=== PATIENT | female | born 1990 | race Two or more races ===

== ENCOUNTER 2023-08-01 22:50 | Emergency (ER) | payer OTHER ==
--- NOTE | 2023-08-01 23:34 | ED Physician Documentation ---
History of Present Illness - Stated complaint Stated Complaint: DIZZY/NAUSEA - Chief complaint Chief Complaint: General - History obtained from History obtained from: Patient - Additonal information Additional information: 32yF at 9wga p/w nausea, intermittent positional lightheadedness, and constant fatigue/weakness X 1 week. patient also describes mood as "zombie like" and depressed. denies si/hi/avh. denies urinary sx, fever, abdominal pain. PD PAST MEDICAL HISTORY - Past Medical History Past Medical History: No - Past Surgical History Past Surgical History: No - Present Medications Home Medications: Ambulatory Orders Medication Instructions Recorded Confirmed Ondansetron Odt [Zofran Odt] 4 mg TL Q6H PRN #10 tablet 08/02/23 - Allergies Allergies/Adverse Reactions: Allergies Allergy/AdvReac Type Severity Reaction Status Date / Time No Known Drug Allergies Allergy Verified 08/01/23 23:06 - Social History Does the pt smoke?: No Smoking Status: Never smoker Does the pt drink ETOH?: No Does the pt have substance abuse?: No - Immunizations Immunizations are current?: Yes PD ED PE NORMAL - Vitals Vital signs reviewed: Yes - General General: Alert and oriented X 3, No acute distress, Well developed/nourished - HEENT HEENT: Atraumatic, PERRL, EOMI - Neck Neck: Supple, no meningeal sign - Cardiac Cardiac: RRR - Respiratory Respiratory: No respiratory distress, Clear bilaterally - Abdomen Abdomen: Non tender, Non distended - Derm Derm: Normal color, Warm and dry - Extremities Extremities: No deformity - Neuro Neuro: No motor deficit, No sensory deficit Results - Vitals Vitals: Vital Signs - 24 hr 08/01/23 23:06 Temperature 37.4 C Heart Rate 76 Respiratory 15 Rate Blood Pressure 116/63 O2 Saturation 100 Oxygen O2 Source Room air - Labs Labs: Laboratory Tests 08/02/23 08/02/23 00:40 00:56 POC Whole Bld Glucose 101 H Urine Color YELLOW Urine Clarity CLOUDY Urine pH 7.5 Ur Specific [place] 1.015 Urine Protein NEGATIVE Urine Glucose (UA) NEGATIVE Urine Ketones NEGATIVE Urine Occult Blood NEGATIVE Urine Nitrite NEGATIVE Urine Bilirubin NEGATIVE Urine Urobilinogen 0.2 (NORMAL) Ur Leukocyte Esterase TRACE H Urine RBC None Seen Urine WBC 4-5 Ur Squamous Epith Cells RARE Squamous Amorphous Sediment Marked Urine Bacteria None Seen Urine Culture Comments INDICATED PD Medical Decision Making - ED course ED course: 32yF at 9wga p/w fatigue, nausea, lightheadedness, and depressed mood X 1 week. Patient is well appearing with benign vital signs and exam. fingerstick normal. u/a shows trace leuk esterase but also some epithelial cells and wbc so likely contaminant. she is not having urinary sx. zofran provided with improvement in nausea. symptomatic care discussed. 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 Return precautions given. Departure - Departure Disposition: 01 Home, Self Care Clinical Impression: Dizziness, Depressed mood, Feeling tired, Early stage of , Nausea Condition: Stable Instructions: Ondansetron oral dissolving tablet Prescriptions: Ondansetron Odt [Zofran Odt] 4 mg TL Q6H PRN #10 tablet PRN Reason: Nausea / Vomiting Comments: You were seen in the emergency department for medical evaluation. Zofran sent to the [facility] electronically. Please follow-up with your primary care provider and return to the emergency department if you have any new or worsening symptoms or other concerns. Forms: PCP List
--- NOTE | 2023-08-02 00:29 | Ultrasound Report ---
PROCEDURE: OB 1st Trimester INDICATIONS: nausea, fatigue, dizzy X 1 wk OUTSIDE/PRIOR DATING DATA: Last menstrual period (LMP): 06/04/2023. LMP-based estimated date of delivery (HERIBERTO): 03/10/2024. First dating scan (date and location): 08/01/2023. Estimated date of delivery (HERIBERTO) from first dating scan: 03/09/2024. TECHNIQUE: Real-time scanning was performed of the fetus and maternal pelvic organs, with image documentation. COMPARISON: None. FINDINGS: Intrauterine gestational sac present. Embryo: Present, measuring 1.88 cm, 8 weeks 3 days. Heart rate: 176 bpm. Other: Small subchorionic hemorrhage measuring 1.6 x 1.9 x 0.8 cm. Normal cul-de-sac. Measurement variability in dating: +/- 4 weeks by LMP, +/- 7 days by mean sac diameter (use before 6 weeks gestation if crown-rump length not able to be measured), +/- 5 days by crown-rump length (6-12 weeks gestation). Maternal organs: Ovaries demonstrate a right-sided corpus luteum. IMPRESSION: Single living intrauterine at 8 weeks 3 days, HERIBERTO of 03/09/2024. Small subchorionic hemorrhage present. Reviewed by: Dino Billy MD on 08/02/2023 12:27 AM PDT Approved by: Dino Billy MD on 08/02/2023 12:27 AM PDT Station ID: [id number]
[2023-08-02 00:48] LABS: BILIRUBIN,URINE NEGATIVE (NEGATIVE); GLUCOSE, URINE (UA) NEGATIVE (NEGATIVE); KETONES,URINE (UA) NEGATIVE (NEGATIVE); LEUKOCYTE ESTERASE, URINE TRACE (NEGATIVE); NITRITE,URINE NEGATIVE (NEGATIVE); OCCULT BLOOD,URINE NEGATIVE (NEGATIVE); PH,URINE 7.5 PH (5.0-7.5); PROTEIN,URINE NEGATIVE (NEGATIVE); UROBILINOGEN,URINE 0.2 (NORMAL) E.U./dL (NORMAL)
[2023-08-02] MEDS: ONDANSETRON ODT 4 MG TABLET TL STA (00:48)
[2023-08-02 00:56] LABS: CLARITY,URINE CLOUDY (CLEAR)
[2023-08-02 00:57] LABS: AMORPHOUS SEDIMENT,UR Marked /LPF; BACTERIA,URINE None Seen /HPF (None Seen); RBC,URINE None Seen /HPF (0-5); SQUAMOUS EPITHELIAL CELL,UR RARE Squamous (<= Few)
[2023-08-02 01:31] VITALS: BP 104/71; O2SAT 99
== END 2023-08-02 01:23 | disposition home or self-care (01) ==
LOC: ED 22:50
DX: O99.891 Other specified diseases and conditions complicating pregnancy (principal); R11.0 Nausea; R42 Dizziness and giddiness; R53.83 Other fatigue; O99.341 Other mental disorders complicating pregnancy, first trimester; F32.A Depression, unspecified; Z3A.09 9 weeks gestation of pregnancy
CPT/HCPCS: 76801; 81001; 87086; 99283; 99284; Q0162

== ENCOUNTER 2023-09-21 22:06 | Emergency (ER) | payer OTHER ==
[2023-09-21 22:36] LABS: BASOPHILS % (AUTO) 0.3 %; EOSINOPHILS # (AUTO) 0.2 10^3/uL (0.0-0.7); EOSINOPHILS % (AUTO) 1.7 %; HCT - HEMATOCRIT 35.3 % (37.0-47.0); HGB - HEMOGLOBIN 11.6 g/dL (12.0-16.0); LYMPHOCYTES % (AUTO) 19.6 %; MEAN CORPUSCULAR HEMOGLOBIN 29.7 pg (27.0-31.0); MEAN CORPUSCULAR HGB CONC 32.9 g/dL (32.0-36.0); MEAN CORPUSCULAR VOLUME 90.5 fL (81.0-99.0); MEAN PLATELET VOLUME 9.6 fL (7.9-10.8); MONOCYTES # (AUTO) 0.6 10^3/uL (0.0-1.0); MONOCYTES % (AUTO) 6.2 %; NEUTROPHILS # (AUTO) 7.3 10^3/uL (1.5-6.6); NEUTROPHILS % (AUTO) 71.8 %; PLT - PLATELET COUNT 217 10^3/uL (130-450); RED CELL DISTRIBUTION WIDTH 12.4 % (12.0-15.0); WHITE BLOOD COUNT 10.2 x10^3/uL (4.8-10.8)
[2023-09-21 22:52] LABS: ALBUMIN 3.7 g/dL (3.2-5.5); ALBUMIN/GLOBULIN RATIO 1.2 (1.0-2.2); BILIRUBIN,TOTAL 0.2 mg/dL (0.2-1.0); CALCIUM 9.7 mg/dL (8.5-10.3); CREATININE 0.5 mg/dL (0.6-1.3); POTASSIUM 3.5 mmol/L (3.5-4.5); TOTAL PROTEIN 6.9 g/dL (6.4-8.9)
[2023-09-21 22:53] LABS: BILIRUBIN,URINE NEGATIVE (NEGATIVE); GLUCOSE, URINE (UA) NEGATIVE (NEGATIVE); KETONES,URINE (UA) NEGATIVE (NEGATIVE); LEUKOCYTE ESTERASE, URINE TRACE (NEGATIVE); NITRITE,URINE NEGATIVE (NEGATIVE); OCCULT BLOOD,URINE NEGATIVE (NEGATIVE); PROTEIN,URINE NEGATIVE (NEGATIVE); UROBILINOGEN,URINE 0.2 (NORMAL) E.U./dL (NORMAL)
[2023-09-21 22:56] LABS: CLARITY,URINE CLEAR (CLEAR)
[2023-09-21 23:02] LABS: BACTERIA,URINE Few /HPF (None Seen); RBC,URINE 0-5 /HPF (0-5); SQUAMOUS EPITHELIAL CELL,UR FEW Squamous (<= Few)
[2023-09-21 23:03] LABS: MUCUS,URINE Few Strands
--- NOTE | 2023-09-21 23:45 | ED Physician Documentation ---
PD HPI ABD PAIN - Stated complaint Stated Complaint: LOWER ABD PX - Chief complaint Chief Complaint: Abd Pain - History obtained from History obtained from: Patient - Additional information Additional information: Patient is a 32-year-old female, G3, P2 presenting for evaluation of lower abdominal pain. She is approximately 15 weeks . She states that she was pushing her kids around on a [employer] type apparatus on the playground this afternoon that was quite heavy. She reports having discomfort in the lower abdomen that is only present with certain movements. No nausea or vomiting. No vaginal bleeding. She has had a prior ultrasounds for this and is following with [facility] in [place].Normal appetite. Review of Systems GI: reports: Abdominal Pain PD PAST MEDICAL HISTORY - Past Medical History Past Medical History: No - Past Surgical History Past Surgical History: No - Present Medications Home Medications: Ambulatory Orders Medication Instructions Recorded Confirmed Ondansetron Odt [Zofran Odt] 4 mg TL Q6H PRN #10 tablet 08/02/23 09/21/23 No122/Iron/Folic Acid 1 tab PO DAILY 08/02/23 09/21/23 [ Multi Tablet] - Allergies Allergies/Adverse Reactions: Allergies Allergy/AdvReac Type Severity Reaction Status Date / Time No Known Drug Allergies Allergy Verified 09/21/23 22:09 - Social History Does the pt smoke?: No Smoking Status: Never smoker Does the pt drink ETOH?: No Does the pt have substance abuse?: No - Immunizations Immunizations are current?: Yes - POLST Patient has POLST: No PD ED PE NORMAL - General General: Alert and oriented X 3, No acute distress, Well developed/nourished - HEENT HEENT: Atraumatic - Neck Neck: Supple, no meningeal sign - Cardiac Cardiac: RRR - Respiratory Respiratory: No respiratory distress, Clear bilaterally - Abdomen Abdomen: Normal bowel sounds, Soft, Non distended, Other (Mild lower abdominal tenderness with no bruising, no tenderness over right lower quadrant or at McBurney's) - Derm Derm: Warm and dry Results - Vitals Vitals: Vital Signs - 24 hr 09/21/23 09/21/23 22:10 23:57 Temperature 36.8 C Heart Rate 90 74 Respiratory 16 16 Rate Blood Pressure 120/69 99/65 O2 Saturation 98 99 Oxygen O2 Source Room air - Labs Labs: Laboratory Tests 09/21/23 09/21/23 09/21/23 22:31 22:31 22:46 WBC 10.2 RBC 3.90 L Hgb 11.6 L Hct 35.3 L MCV 90.5 MCH 29.7 MCHC 32.9 RDW 12.4 Plt Count 217 MPV 9.6 Neut # (Auto) 7.3 H Lymph # (Auto) 2.0 Bennett # (Auto) 0.6 Eos # (Auto) 0.2 Baso # (Auto) 0.0 Absolute Nucleated RBC 0.00 Nucleated RBC % 0.0 Sodium 135 Potassium 3.5 Chloride 105 Carbon Dioxide 23 Anion Gap 7.0 BUN 16 Creatinine 0.5 L Estimated GFR (MDRD) 145 Glucose 94 Calcium 9.7 Total Bilirubin 0.2 AST 15 ALT 14 Alkaline Phosphatase 51 Total Protein 6.9 Albumin 3.7 Globulin 3.2 Albumin/Globulin Ratio 1.2 Lipase 35 Urine Color YELLOW Urine Clarity CLEAR Urine pH 6.0 Ur Specific [place] >=1.030 H Urine Protein NEGATIVE Urine Glucose (UA) NEGATIVE Urine Ketones NEGATIVE Urine Occult Blood NEGATIVE Urine Nitrite NEGATIVE Urine Bilirubin NEGATIVE Urine Urobilinogen 0.2 (NORMAL) Ur Leukocyte Esterase TRACE H Urine RBC 0-5 Urine WBC 11-25 H Ur Squamous Epith Cells FEW Squamous Urine Bacteria Few Urine Mucus Few Strands Ur Microscopic Review INDICATED Urine Culture Comments INDICATED PD Medical Decision Making - ED course Complexity details: reviewed results, d/w patient ED course: Patient is a 32-year-old female presenting for evaluation of lower abdominal pain in the setting of at 15 weeks. No nausea, vomiting. No vaginal bleeding or spotting. Patient does report discomfort only with movements and reports a history of pushing her children around on a large piece of playground equipment earlier today. Her abdominal exam is benign with only mild amount of tenderness. No tenderness over the appendix. CBC and chemistries were reviewed and without significant findings. heart tones are appropriate. Urine analysis with trace leukocytes and 11-25 WBC but no symptoms to suggest UTI. Given that she is a culture has been sent and will treat asymptomatic bacteriuria in . Patient comfortable and holding off on imaging at this time as her pain is improving and again is really only present with certain movements which suggest musculoskeletal etiology. She feels comfortable with trial of acetaminophen and understand strict return precautions. Departure - Departure Disposition: 01 Home, Self Care Clinical Impression: Lower abdominal pain, Abdominal pain during Condition: Stable Instructions: ED Abdominal Pain Female Non-Specific Abdominal Pain Comments: Your lab testing is reassuring and we are going to send your urine for culture to ensure there is no infection. Baby's heart rate was checked and is within normal limits. I would recommend the use of Tylenol for any discomfort. Return to the ER if you have any worsening pain or develop any new symptoms such as vomiting, heavy vaginal bleeding or any new concerns. Forms: PCP List Discharge Date/Time: 09/21/23 23:57
[2023-09-22 00:05] VITALS: BP 99/65; O2SAT 99
== END 2023-09-21 23:57 | disposition home or self-care (01) ==
LOC: ED 22:06
DX: O26.892 Other specified pregnancy related conditions, second trimester (principal); Z3A.15 15 weeks gestation of pregnancy; R10.30 Lower abdominal pain, unspecified
CPT/HCPCS: 36415; 80053; 81001; 81003; 83690; 85025; 87086; 99283